=== PATIENT | female | born 1965 | race Caucasian/White ===

== ENCOUNTER 2020-08-25 12:38 | Emergency (ER) | payer OTHER ==
[2020-08-25] MEDS ORDERED: IBUPROFEN600 MG PO (14:09)
== END 2020-08-25 14:15 | disposition home or self-care (01) ==
LOC: ER1 12:38
DX: S52.132A Displaced fracture of neck of left radius, initial encounter for closed fracture (principal); I10 Essential (primary) hypertension; W19.XXXA Unspecified fall, initial encounter; Y92.009 Unspecified place in unspecified non-institutional (private) residence as the place of occurrence of the external cause
CPT/HCPCS: 29125; 73060; 73090; 99283